=== PATIENT | male | born 2000 | race Caucasian/White ===

== ENCOUNTER 2021-04-08 23:08 | Emergency (ER) | payer BC, OTHER ==
[2021-04-08 23:16] VITALS: BP 136/67; PULSE 74; TEMP 99; BMI 28.1
[2021-04-09] MEDS ORDERED: SODIUM CHLORIDE 0.9% 500 ML INFUS.BAG IV ONE (00:23)
[2021-04-09] MEDS ORDERED: ONDANSETRON 4 MG/2 ML VIAL IVPUSH ONE (00:25)
[2021-04-09] MEDS ORDERED: PANTOPRAZOLE SODIUM 40 MG VIAL IVPUSH ONE (00:27)
[2021-04-09] MEDS ORDERED: ONDANSETRON 4 MG/2 ML VIAL ONE (00:34)
[2021-04-09] MEDS ORDERED: PANTOPRAZOLE SODIUM 40 MG/100 ML BAG IVPB ONE (00:34)
[2021-04-09] MEDS ORDERED: MAG HYDROX/AL HYDROX/SIMETH 30 ML UNIT-DOSE CUP PO ONE (01:07)
[2021-04-09] MEDS ORDERED: METOCLOPRAMIDE HCL 10 MG TABLET (FP) PO ONE ×2 (01:07→01:14)
[2021-04-09] MEDS ORDERED: MAG HYDROX/AL HYDROX/SIMETH 30 ML UNIT-DOSE CUP ONE (01:15)
[2021-04-09 02:02] LABS: CALCIUM 9.4 mg/dL (8.5-10.1)
[2021-04-09 02:03] LABS: ALBUMIN 4.1 g/dl (3.4-5.0)
[2021-04-09 02:05] LABS: CREATININE 0.7 mg/dL (0.55-1.3)
[2021-04-09 02:05] LABS: HEMATOCRIT 38.7 % (35.4-49); HEMOGLOBIN 12.2 GM/dL (11.7-16.9); MCH 18.2 pg (25.7-33.7); MCHC 31.5 g/dl (32.0-35.9); MEAN CELL VOLUME 57.8 fl (80-96); MEAN PLT VOLUME 8.4 fl (7.5-11.1); PLATELET COUNT 383 10^3/uL (134-434); RDW 16.2 % (11.9-15.9)
[2021-04-09 02:07] LABS: TOT PROT 7.8 g/dl (6.4-8.2)
[2021-04-09 03:26] LABS: BILIRUBIN,TOTAL 1.2 mg/dL (0.2-1)
[2021-04-09 08:52] LABS: ANISOCYTOSIS 3+; MACROCYTOSIS 0; PLATELET ESTIMATE NORMAL; TARGET CELLS 1+
== END 2021-04-09 03:00 | disposition home or self-care (01) ==
LOC: JER 23:08
PROC: 3E033GC Introduction of Other Therapeutic Substance into Peripheral Vein, Percutaneous Approach (ICD-10-PCS; principal; 2021-04-08)
DX: R11.2 Nausea with vomiting, unspecified (principal)
CPT/HCPCS: 36415; 80053; 83690; 85025; 99284-25

== ENCOUNTER 2021-04-11 16:36 | Emergency (ER) | payer BC, OTHER ==
[2021-04-11 16:52] VITALS: BP 125/88; PULSE 96; TEMP 98.2; BMI 27.3
[2021-04-11] MEDS ORDERED: ACETAMINOPHEN 1000 MG/100 ML VIAL IVPB ONE (18:59)
[2021-04-11] MEDS ORDERED: ONDANSETRON 4 MG/2 ML VIAL IVPUSH ONE (18:59)
[2021-04-11] MEDS ORDERED: SODIUM CHLORIDE 1,000 ML IV STA (18:59)
[2021-04-11 20:35] LABS: HEMATOCRIT 42.7 % (35.4-49); HEMOGLOBIN 13.8 GM/dL (11.7-16.9); MCHC 32.3 g/dl (32.0-35.9); MEAN CELL VOLUME 56.6 fl (80-96); MEAN PLT VOLUME 8.4 fl (7.5-11.1); PLATELET COUNT 417 10^3/uL (134-434); RDW 16.1 % (11.9-15.9); WHITE BLOOD COUNT 20.9 K/mm3 (4.0-10.0)
[2021-04-11] MEDS ORDERED: ACETAMINOPHEN INJECTION 100 ML IVPB ONE (20:43)
[2021-04-11] MEDS ORDERED: ONDANSETRON 4 MG/2 ML VIAL ONE (20:43)
[2021-04-11 20:45] LABS: INR 1.19 (0.83-1.09); PROTHROMBIN TIME (PATIENT) 13.9 SEC (9.7-13.0)
[2021-04-11 20:53] LABS: MCH 18.2 pg (25.7-33.7); RBC 7.56 M/mm3 (4.00-5.60)
[2021-04-11 21:05] LABS: CALCIUM 10.2 mg/dL (8.5-10.1)
[2021-04-11 21:06] LABS: ALBUMIN 4.6 g/dl (3.4-5.0); BLOOD UREA NITROGEN 13.3 mg/dL (7-18)
[2021-04-11 21:09] LABS: CREATININE 0.8 mg/dL (0.55-1.3)
[2021-04-11 21:10] LABS: TOT PROT 8.2 g/dl (6.4-8.2)
[2021-04-11 22:26] LABS: ANISOCYTOSIS 1+; MACROCYTOSIS 0; OVALOCYTE 1+; PLATELET ESTIMATE NORMAL
[2021-04-11 23:43] LABS: PH,URINE 8.5 (5.0-8.0); URINE APPEARANCE CLEAR; URINE BILIRUBIN NEGATIVE (NEGATIVE); URINE COLOR YELLOW; URINE GLUCOSE (UA) NEGATIVE (NEGATIVE); URINE KETONE 2+ (NEGATIVE); URINE LEUK ESTERASE NEGATIVE (NEGATIVE); URINE NITRITE NEGATIVE (NEGATIVE); URINE PROTEIN NEGATIVE (NEGATIVE); URINE UROBILINOGEN 0.2 mg/dL (0.2-1.0)
== END 2021-04-12 | disposition home or self-care (01) ==
LOC: JER 16:36
PROC: 3E0333Z Introduction of Anti-inflammatory into Peripheral Vein, Percutaneous Approach (ICD-10-PCS; principal; 2021-04-11)
PROC: 3E033GC Introduction of Other Therapeutic Substance into Peripheral Vein, Percutaneous Approach (ICD-10-PCS; 2021-04-11)
PROC: 3E0337Z Introduction of Electrolytic and Water Balance Substance into Peripheral Vein, Percutaneous Approach (ICD-10-PCS; 2021-04-11)
DX: K52.9 Noninfective gastroenteritis and colitis, unspecified (principal)
CPT/HCPCS: 36415; 74177-TC; 80053; 81003; 83690; 85025; 85610; 87086; 87491; 87591; 99285-25; J0131; Q9967